=== PATIENT | male | born 1985 | race Hispanic/Latino ===

== ENCOUNTER 2025-04-12 08:47 | Emergency (ER) | payer SELFPAY ==
[2025-04-12] MEDS ORDERED: Ibuprofen 200 MG TAB ONE (09:23)
[2025-04-12] MEDS ORDERED: predniSONE 20 MG TAB ONE (09:23)
== END 2025-04-12 09:58 | disposition home or self-care (01) ==
LOC: BURERS 08:47
DX: M54.50 Low back pain, unspecified (principal)
CPT/HCPCS: 99283; J7512